=== PATIENT | female | born 1970 | race African-American/Black ===

== ENCOUNTER 2021-12-20 16:15 | Emergency (ER) | payer SELFPAY ==
[~2021-12-20] VITALS: Ht 165.1 cm; Wt 108.4 kg
--- NOTE | 2021-12-20 16:56 | NUR ---
PT SEEN AND EVALUATED BY DR GRIER.
--- NOTE | 2021-12-20 17:32 | NUR ---
CHEST XRAY DONE -AWAITING TEST RESULTS.
[2021-12-20] MEDS ORDERED: KETOROLAC TROMETHAMINE 15 MG INJ IVP ONE (18:15)
[2021-12-20] MEDS ORDERED: MORPHINE SULFATE 2 MG/1 ML DISP.SYRIN IV ONE ×2 (18:15)
--- NOTE | 2021-12-20 18:21 | NUR ---
DR GRIER REVIEWED TEST RESULTS WITH PATIENT. DISCHARGED IN STABLE CONDITION.
[2021-12-20 18:22] VITALS: BP 140/80
== END 2021-12-20 18:23 | disposition home or self-care (01) ==
LOC: ER 16:15
DX: R05.9 Cough, unspecified (principal); Z77.110 Contact with and (suspected) exposure to air pollution; E03.9 Hypothyroidism, unspecified
CPT/HCPCS: 71045; A4663